=== PATIENT | female | born 1990 | race Caucasian/White ===

== ENCOUNTER 2016-12-01 17:16 | Emergency (ER) | payer BC ==
[~2016-12-01] VITALS: Ht 157.5 cm; Wt 52.6 kg
[2016-12-01 17:25] VITALS: TEMP 36.8; Ht 157.5 cm; Wt 52.6 kg
[2016-12-01] MEDS ORDERED: LEVOIUD INT UTER (17:48)
[2016-12-01] MEDS ORDERED: MULT-580 PO (17:48)
--- NOTE | 2016-12-01 18:10 | EMERGENCY ROOM VISIT NOTE ---
History Report prepared by Elvira: Jesus Griffith Under the Supervision of: Dr. Eleuterio Vaca M.D. First contact with patient: 17:53 Chief Complaint: OTHER COMPLAINT Stated Complaint: POST SURGERY LEG PAIN & COUGH History of Present Illness The patient is a 26 year old female who presents to the Emergency Room with complaints of waxing and waning left groin pain beginning 3-4 days prior to arrival. She describes her pain as soreness and currently rates her discomfort as a 4/10 in severity. The patient associates a cough for two days, left groin pain radiating to her left lower abdomen and left thigh with today's symptoms. She states she had surgery for endometriosis performed two weeks ago at [facility]. The patient notes she was told they removed a lot and to expect some discomfort. She states she was feeling fine until a few days ago, when she began experiencing intermittent cramping in her left groin. The patient notes the pain became constant yesterday and was a 7-8/10 in severity at its worse. She denies her groin pain radiating to her back. The patient notes she also had a Mirena placed during the surgery, and she has been consistently spotting since. She states she called her doctor, who referred her to the ED today. The patient notes she tried taking Aleve, using heat, and applying ice without relief. She denies fever, shortness of breath, leg swelling, nausea, vomiting, urinary symptoms, and vaginal discharge. Source of History: patient Onset: 3-4 days [employer] Position: other (left groin) Symptom Intensity: 4/10 Quality: other (soreness) Timing: waxes/wanes Associated Symptoms: + cough, No SOB, No fevers, No nausea, No urinary symptoms, No vomiting Note: Associated symptoms: left groin pain radiating to her left lower abdomen and left thigh Review of Systems See HPI for pertinent positives & negatives. A total of 10 systems reviewed and were otherwise negative. Past Medical & Surgical Medical Problems: (1) Endometriosis (2) Fibroid Family History Cancer Diabetes mellitus FH: heart disease FHx: gallbladder disease FHx: lung disease Hypertension Social History Smoking Status: Never Smoker Marital Status: in relationship Occupation Status: student Current/Historical Medications Scheduled Levonorgestrel (Iud) (Mirena), 20 MCG INT UTER UD Multiple Vitamins W/ Minerals (Hair/Skin/Nails), 1 TAB PO DAILY Allergies Coded Allergies: Promethazine (Verified Allergy, Intermediate, Palpatations, 12/01/16) Reaction from IV form only Cefaclor (Verified Allergy, Unknown, rash, 07/23/14) Latex (Verified Allergy, Unknown, rash, 07/23/14) Sulfa Antibiotics (Verified Allergy, Unknown, RASH, 08/19/15) Physical Exam Vital Signs Date Time Temp Pulse Resp B/P Pulse Ox O2 Delivery O2 Flow Rate FiO2 12/01/16 19:15 95 16 119/70 98 12/01/16 18:36 87 20 109/72 95 12/01/16 17:25 36.8 103 18 129/79 96 Room Air Physical Exam GENERAL: Patient is in no acute distress. HEENT: No acute trauma, normocephalic atraumatic, mucous membranes moist, no nasal congestion, no scleral icterus. NECK: No stridor, no adenopathy, no meningismus, trachea is midline. LUNGS: Dry cough noted. Clear to auscultation bilaterally, no wheeze, no rhonchi , breath sounds equal. HEART: Without murmurs gallops or rubs, regular rate and rhythm. ABDOMEN: Soft, nontender, bowel sounds positive, no hernias, no peritonitis. EXTREMITIES: Mildly tender in the area of the left groin and proximal left thigh , although there is no swelling or erythema. The left femoral pulse is strong. No cyanosis or edema, full range of motion of all the other joints without pain or difficulty, no signs for acute trauma. NEUROLOGIC: Oriented x 3, no acute motor or sensory deficits, no focal weakness. SKIN: No rash, no jaundice, no diaphoresis. Medical Decision & Procedures ER Provider Diagnostic Interpretation: X ray results and stated below per my interpretation and radiologist interpretation. Other radiology results and stated below per my review and radiologist interpretation: CHEST ONE VIEW PORTABLE HISTORY: cough COMPARISON: None. FINDINGS: Mild dextroscoliosis of the thoracic spine. The lungs are clear. No pleural effusions. No pneumothorax. The heart is normal in size. Prior cholecystectomy. IMPRESSION: No acute process. Electronically signed by: Collin Castle M.D. 12/01/2016 6:39 PM Dictated Date/Time: 12/01/2016 6:38 PM LEFT LOWER EXTREMITY VENOUS DOPPLER HISTORY: Left leg pain, surgery COMPARISON STUDY: None. FINDINGS: There is normal compressibility, flow, and augmentation within the left lower extremity deep venous system. IMPRESSION: No DVT within the left lower extremity. Electronically signed by: Collin Castle M.D. 12/01/2016 7:00 PM Dictated Date/Time: 12/01/2016 7:00 PM Laboratory Results Test 12/01/16 18:30 Urine Color DK YELLOW Urine Appearance CLEAR (CLEAR) Urine pH 5.0 (4.5-7.5) Urine Specific [place] 1.024 (1.000-1.030) Urine Protein NEG (NEG) Urine Glucose (UA) NEG (NEG) Urine Ketones NEG (NEG) Urine Occult Blood NEG (NEG) Urine Nitrite NEG (NEG) Urine Bilirubin NEG (NEG) Urine Urobilinogen NEG (NEG) Urine Leukocyte Esterase NEG (NEG) Urine Test NEG (NEG) Laboratory results reviewed by me. ED Course 1754: The patient was evaluated in room C8. A complete history and physical exam was performed. 191: Reevaluated the patient, and she is doing well. Discussed results and discharge instructions: She verbalized understanding and agreement. The patient is ready for discharge. Medical Decision The differential diagnoses included but are not limited to: musculoskeletal pain , cellulitis, DVT, hernia, adenopathy, UTI, surgical complication. The patient presents with left groin pain, on my exam, there is no discomfort with palpation of the abdomen or pelvis. Her surgical wounds have healed well. There is no sign of adenopathy in the groin or for hernia. There is no cellulitis. Urinalysis does not show infection, testing is negative. Left leg ultrasound does not show DVT. Because of her dry cough, chest x-ray was done, no pneumonia noted. The patient's pain is likely musculoskeletal. Nothing worrisome by workup, she is not toxic or febrile and I do think can be discharged to follow with her surgeon as an outpatient. Impression Primary Impression: Left groin pain Additional Impression: Cough Scribe Attestation The scribe's documentation has been prepared under my direction and personally reviewed by me in its entirety. I confirm that the note above accurately reflects all work, treatment, procedures, and medical decision making performed by me. Departure Information Dispostion Home / Self-Care Referrals No Doctor, Assigned (PCP) Forms HOME CARE DOCUMENTATION FORM, IMPORTANT VISIT INFORMATION Patient Instructions A Signature Page, My [facility] Additional Instructions heat may help rest otc pain meds return for fever, rash or worsening symptoms be sure to follow with your surgeon Problem Qualifiers
--- NOTE | 2016-12-01 18:40 | DIAGNOSTIC IMAGING REPORT ---
CHEST ONE VIEW PORTABLE HISTORY: cough COMPARISON: None. FINDINGS: Mild dextroscoliosis of the thoracic spine. The lungs are clear. No pleural effusions. No pneumothorax. The heart is normal in size. Prior cholecystectomy. IMPRESSION: No acute process. Electronically signed by: Collin Castle M.D. 12/01/2016 6:39 PM Dictated Date/Time: 12/01/2016 6:38 PM
[2016-12-01 18:52] LABS: URINE APPEARANCE CLEAR (CLEAR); URINE BILIRUBIN NEG (NEG); URINE COLOR DK YELLOW; URINE NITRITE NEG (NEG); URINE SPECIFIC GRAVITY 1.024 (1.000-1.030); UROBILINOGEN NEG (NEG)
[2016-12-01 18:58] LABS: MANUAL MICROSCOPIC REQUIRED? NO; REVIEW REQ? NO
--- NOTE | 2016-12-01 19:02 | DIAGNOSTIC IMAGING REPORT ---
LEFT LOWER EXTREMITY VENOUS DOPPLER HISTORY: Left leg pain, surgery COMPARISON STUDY: None. FINDINGS: There is normal compressibility, flow, and augmentation within the left lower extremity deep venous system. IMPRESSION: No DVT within the left lower extremity. Electronically signed by: Collin Castle M.D. 12/01/2016 7:00 PM Dictated Date/Time: 12/01/2016 7:00 PM
[2016-12-01 19:15] VITALS: BP 119/70; PULSE 95; O2SAT 98
== END 2016-12-01 19:30 | disposition home or self-care (01) ==
LOC: C.EDB 17:19 → C.EDC 19:30
DX: R10.30 Lower abdominal pain, unspecified (principal); R05 Cough; M41.9 Scoliosis, unspecified; N80.9 Endometriosis, unspecified; Z79.899 Other long term (current) drug therapy; Z88.2 Allergy status to sulfonamides; Z88.8 Allergy status to other drugs, medicaments and biological substances; Z91.040 Latex allergy status

== ENCOUNTER → 2017-08-15 | Outpatient (CLI) | payer BC ==
[~2017-08-15] MED LIST: LEVOIUD INT UTER; MULT-580 PO
--- NOTE | 2017-08-15 09:27 | DIAGNOSTIC IMAGING REPORT ---
PELVIC COMPLETE NON OB HISTORY: 26 years-old Female CRAMPING,PAIN,ABN VAGINAL DISCHARGE, CHECK IUD acute lower abdominal pain with vaginal discharge. Initial exam. COMPARISON: None available. TECHNIQUE: Multiple real-time sonographic images of the deep pelvic structures were obtained transabdominally and transvaginally assessing grayscale appearance, color and spectral flow. FINDINGS: TRANSABDOMINAL: Retroflexed uterus measures 7.4 x 4.2 x 4.9 cm. Endometrium measures 0.6 cm. Intrauterine device is noted appears to be in satisfactory position. Right ovary measures 4.0 x 2.0 x 3.5 cm. The right ovary there is a hypoechoic structure seen, 3.3 x 2.7 x 2.7 cm suggesting ovarian cyst. TRANSVAGINAL: Retroflexed uterus is seen, 7.2 x 3.9 x 5.9 cm. Endometrium measures 0.4 cm. Intrauterine device is present which appears to be in satisfactory position within the endometrial canal. Left ovary measures 3.0 x 1.2 x 2.3 cm demonstrating arterial inflow and venous outflow. Right ovary measures 4.3 x 2.8 x 3.2 cm. There is a large cystic lesion of the right ovary, 3.6 x 2.5 x 2.8 cm with internal mural based cystic structures. Seen measuring up to 7.7 mm. Arterial inflow and venous outflow seen within the right ovary. Trace free pelvic fluid is likely reactive. IMPRESSION: 1. Satisfactory position of IUD within the mid endometrial canal. 2. Cystic lesion of the right ovary measuring up to 3.6 cm demonstrates peripheral cystic structures measuring several millimeters in size. This is nonspecific. Follow-up ultrasound in 6 months is recommended to further evaluate. 3. No evidence of ovarian torsion. 4. Trace free pelvic fluid, likely physiologic. The above report was generated using voice recognition software. It may contain grammatical, syntax or spelling errors. Electronically signed by: Chandler Crawford M.D. 08/15/2017 9:26 AM Dictated Date/Time: 08/15/2017 9:19 AM
== END | disposition home or self-care (01) ==
LOC: C.ULTR 08:27
PROVIDERS: ATTEND Nurse Practitioner
DX: N80.9 Endometriosis, unspecified (principal); R10.2 Pelvic and perineal pain; R10.32 Left lower quadrant pain; N89.8 Other specified noninflammatory disorders of vagina

== ENCOUNTER → 2017-11-08 | Outpatient (CLI) | payer BC ==
--- NOTE | 2017-11-08 12:28 | DIAGNOSTIC IMAGING REPORT ---
PELVIC ULTRASOUND, TRANSABDOMINAL AND TRANSVAGINAL HISTORY: PELVIC PAIN COMPARISON: Pelvic ultrasound 08/15/2017. FINDINGS: Uterus: The uterus is retroflexed. No uterine masses. Endometrial stripe: 6 mm in thickness. The intrauterine device is in good position. Right ovary: There is a 4.2 x 4.1 x 2.6 cm simple cyst. This previous measured 3.6 x 2.8 x 2.5 cm. Normal color flow within the ovarian tissue. Left ovary: Normal in size and demonstrates normal color flow. Miscellaneous:Trace pelvic free fluid. IMPRESSION: 1. Slight increase in size in the 4.2 cm right ovarian cyst. However, this is demonstrated to be a simple cyst. Additional 3 month pelvic ultrasound follow-up is recommended to ensure resolution. 2. Normal left ovary. 3. The intrauterine device is in good position. Electronically signed by: Collin Castle M.D. 11/08/2017 12:27 PM Dictated Date/Time: 11/08/2017 12:24 PM
== END | disposition home or self-care (01) ==
LOC: C.ULTR 11:46
PROVIDERS: ATTEND Nurse Practitioner
DX: N83.201 Unspecified ovarian cyst, right side (principal); N80.9 Endometriosis, unspecified; R10.2 Pelvic and perineal pain

== ENCOUNTER → 2017-11-10 | Outpatient (CLI) | payer BC ==
--- NOTE | 2017-11-10 14:35 | MAMMOGRAPHY REPORT ---
ULTRASOUND OF RIGHT BREAST: 11/10/2017 CLINICAL HISTORY: The patient reports diffuse right breast pain which she believes may be due to her Mirena. She also reports a tubular lump on the right upper aspect of the areolar approximately one m onth ago, which is much less prominent than when she first felt it. COMPARISON: No prior exams were available for comparison. TECHNIQUE: Real-time ultrasound of the right breast was performed. FINDINGS: Real-time, high-resolution ultrasound was performed of the right breast including all 4 qu adrants and subareolar regions. The background parenchymal echotexture is markedly heterogeneous whi ch reduces the sensitivity of the exam. However, no suspicious masses or other suspicious sonographi c abnormalities are evident. In the right breast at 1:00, approximately 3 cm from the nipple, there is an oval circumscribed anechoic 6 x 6 mm mass, consistent with a benign cyst. Ultrasound was perfo rmed of the area of the tubular lump pointed out by the patient at the upper outer aspect of the righ t areola. In this region there is a superficial intradermal oval circumscribed anechoic cystic-appea ring mass which measures 6 x 2 mm. This is benign given the intradermal location and may represent a Bermudez gland cyst or other benign mass. IMPRESSION: ACR BI-RADS CATEGORY 2: BENIGN 1. No sonographic abnormality to explain diffuse right breast pain. 2. Intradermal 6 x 2 mm cystic mass in the region of the palpable tubular lump at the upper outer as pect of the right areola. The mass is benign and may represent a Bermudez gland cyst or other lizett gn mass. There is no sonographic evidence of malignancy. Recommend clinical follow-up for the right breast benjamín mp and pain. The patient was verbally notified of the results. Monique Millan M.D. /:11/10/2017 08:13:06 Mailing Clerk: Monique Millan MD, [facility] letter sent: Normal 1/2 BI-RADS Code: ACR BI-RADS Category 2: Benign
== END | disposition home or self-care (01) ==
LOC: C.MAMM 07:43
PROVIDERS: ATTEND Nurse Practitioner
DX: N64.4 Mastodynia (principal); N63.10 Unspecified lump in the right breast, unspecified quadrant

== ENCOUNTER → 2018-01-19 | Outpatient (CLI) | payer BC ==
[~2018-01-19] MED LIST changes: +LEVO1IUD2 INT UTER; -LEVOIUD INT UTER
--- NOTE | 2018-01-19 11:43 | DIAGNOSTIC IMAGING REPORT ---
TRANSVAG-FEMALE PELVIS HISTORY: 27 years-old Female LLQ PAIN acute left lower quadrant abdominal pain. History of right ovarian cyst COMPARISON: Pelvic ultrasound 11/08/2017 TECHNIQUE: Multiple real-time sonographic images of the deep pelvic structures were obtained transvaginally assessing grayscale appearance, color and spectral flow FINDINGS: The retroflexed uterus measures 6.7 x 3.4 x 5.6 cm and appears unremarkable. Intrauterine device is noted which appears to be in appropriate positioning within the mid and fundal portions of the endometrial canal. Endometrium appears unremarkable, 4 mm. No myometrial mass lesions are identified. There is trace amount of nonspecific fluid seen within the lower uterine segment and endocervical canal. The right ovary measures 4.0 x 2.5 x 3.3 cm. There is an ovoid cystic appearing lesion of the right ovary measuring 2.7 x 1.5 x 2.2 cm. Arterial inflow to the right ovary is noted. The left ovary measures 3.5 x 1.7 x 1.7 cm and is unremarkable without focal lesion. Arterial inflow to the left ovary is noted. No significant free pelvic fluid. IMPRESSION: 1. 2.7 cm cystic lesion of the right ovary suggests dominant follicle. No evidence of ovarian torsion. 2. IUD in situ. 3. Trace fluid of the lower uterine segment and endocervical canal is likely physiologic. 4. Unremarkable sonographic appearance of the left ovary. The above report was generated using voice recognition software. It may contain grammatical, syntax or spelling errors. Electronically signed by: Chandler Crawford M.D. 01/19/2018 11:41 AM Dictated Date/Time: 01/19/2018 11:38 AM
== END | disposition home or self-care (01) ==
LOC: C.ULTRBC 10:46
PROVIDERS: ATTEND Nurse Practitioner
DX: N80.9 Endometriosis, unspecified (principal); N83.201 Unspecified ovarian cyst, right side; R10.2 Pelvic and perineal pain; R10.32 Left lower quadrant pain; Z97.5 Presence of (intrauterine) contraceptive device